=== PATIENT | male | born 1945 | race Caucasian/White ===

== ENCOUNTER 2019-09-17 08:39 | Emergency (ER) | payer BC, MEDICARE ==
[2019-09-17] MEDS ORDERED: Iopamidol 612 MG/ML 100 ML Bottle IVPUSH ONE (09:00)
[2019-09-17] MEDS ORDERED: fentaNYL 100 MCG/2 ML SDV IVPUSH ONE (09:00)
--- NOTE | 2019-09-17 09:01 | EDM.PDOC ---
ED HPI GENERAL MEDICAL PROBLEM - General Stated Complaint: PAIN PAIN LEFT SIDE Time Seen by Provider: 09/17/19 08:55 Source of Information: Reports: Patient, RN History Limitations: Reports: No Limitations - History of Present Illness INITIAL COMMENTS - FREE TEXT/NARRATIVE: 73-year-old with past medical history of hypertension and hyperlipidemia who presents to the ER with left lower abdominal pain x one day. Patient reports he woke up from sleep yesterday with left lower quadrant pain which gradually subsided throughout the day. Prior to his ER visit, he woke up with the same pain again and it is not subsiding. He has not tried anything for pain. Nothing makes it worse or better. He has never had such pain before. Patient rates pain as an 8 on a 10 and described as sharp and deep. He denies any fevers, chills shortness of breath, chest pain, palpitation, diarrhea, constipation, nausea, vomiting, no history of kidney stones ordiverticulitis. He denies any urinary symptoms or recent abdominal trauma. Onset: Sudden Onset Date: 09/16/19 Duration: Day(s): Location: Reports: Abdomen Quality: Reports: Sharp Severity: Severe Improves with: Reports: None Left Abdominal Pain Score (Numeric/FACES): 7 - Related Data Allergies Allergy/AdvReac Type Severity Reaction Status Date / Time No Known Allergies Allergy Verified 09/17/19 08:53 Home Meds: Home Meds Aspirin [Halfprin] 81 mg PO DAILY 09/17/19 [History] Brimonidine Tartrate/Timolol [Combigan Eye Drops] 5 ml OP BID 09/17/19 [History] Latanoprost/Pf [Latanoprost 0.005% Eye Drop] 7.5 ml OP DAILY 09/17/19 [History] Netarsudil Mesylate [Rhopressa] 2.5 ml OP DAILY 09/17/19 [History] amLODIPine Besylate [Norvasc] 10 mg PO DAILY 09/17/19 [History] atorvaSTATin [Lipitor] 40 mg PO DAILY 09/17/19 [History] lisinopriL [Lisinopril] 10 mg PO DAILY 09/17/19 [History] ED ROS GENERAL - Review of Systems Review Of Systems: Comprehensive ROS is negative, except as noted in HPI. ED EXAM,LOWER BACK PAIN/INJURY - Physical Exam Exam: See Below Exam Limited By: No Limitations General Appearance: Alert, Anxious, Severe Distress Respiratory/Chest: No Respiratory Distress, Lungs Clear, Normal Breath Sounds, No Accessory Muscle Use, Chest Non-Tender Cardiovascular: Normal Peripheral Pulses, Regular Rate, Rhythm, No Edema, No Gallop, No JVD, No Murmur, No Rub GI/Abdominal: Normal Bowel Sounds, Soft, Tender (LLQ apin noted with palpation) (Male) Exam: Deferred Rectal (Males) Exam: Deferred Back Exam: Normal Inspection Neurological: Alert, Normal Gait Psychiatric: Tearful Skin Exam: Warm, Dry Lymphatic: No Adenopathy Course - Vital Signs Last Recorded V/S: Last Vital Signs Temp 97.1 F 09/17/19 08:57 Pulse 66 09/17/19 08:57 Resp 18 09/17/19 08:57 BP 170/79 H 09/17/19 08:57 Pulse Ox 99 09/17/19 08:57 - Orders/Labs/Meds Labs: Laboratory Tests 09/17/19 09/17/19 09/17/19 Range/Units 08:50 09:07 09:07 WBC 10.7 H (5.0-10.0) 10^3/uL RBC 4.67 (4.6-6.2) 10^6/uL Hgb 13.8 L (14.0-18.0) g/dL Hct 41.4 (40.0-54.0) % MCV 88.7 (80-100) fL MCH 29.6 (27.0-34.0) pg MCHC 33.3 (33.0-35.0) g/dL Plt Count 186 (150-450) 10^3/uL Neut % (Auto) 82.6 H (42.2-75.2) % Lymph % (Auto) 9.6 L (20.5-50.1) % Snyder % (Auto) 5.5 (2-8) % Eos % (Auto) 2.0 (1.0-3.0) % Baso % (Auto) 0.3 (0.0-1.0) % Sodium 142 (136-145) mmol/L Potassium 4.0 (3.5-5.1) mmol/L Chloride 106 (98-107) mmol/L Carbon Dioxide 29 (21-32) mmol/L Anion Gap 11.0 (7-13) mEq/L BUN 16 (7-18) mg/dL Creatinine 1.20 (0.70-1.30) mg/dL Est Cr Clr Drug Dosing 60.18 mL/min Estimated GFR (MDRD) 59 BUN/Creatinine Ratio 13.3 (No establ ref range) Glucose 107 H (74-99) mg/dL Calcium 9.0 (8.5-10.1) mg/dL Total Bilirubin 0.8 (0.2-1.0) mg/dL AST 26 (15-37) U/L ALT 33 (16-63) U/L Alkaline Phosphatase 85 (46-116) U/L Total Protein 7.0 (6.4-8.2) g/dL Albumin 3.9 (3.4-5.0) g/dL Globulin 3.1 Albumin/Globulin Ratio 1.3 Urine Color Yellow (YELLOW) Urine Appearance Slightly cloudy (CLEAR) Urine pH 5.5 (5.0-9.0) Ur Specific Bates 1.025 (1.005-1.030) Urine Protein Negative (NEGATIVE) Urine Glucose (UA) Negative (NEGATIVE) Urine Ketones Negative (NEGATIVE) Urine Occult Blood Large H (NEGATIVE) Urine Nitrite Negative (NEGATIVE) Urine Bilirubin Negative (NEGATIVE) Urine Urobilinogen 0.2 (0.2-1.0) mg/dL Ur Leukocyte Esterase Negative (NEGATIVE) Urine RBC 30-40 H /HPF Urine WBC 0-5 (0-5/HPF) /HPF Ur Epithelial Cells Rare (NOT SEEN) /HPF Urine Bacteria Not seen (0-FEW/HPF) /HPF Meds: Medications Discontinued Medications Generic Name Dose Route Start Last Admin Trade Name Travisq PRN Reason Stop Dose Admin Fentanyl 25 mcg 09/17/19 09:00 09/17/19 09:08 Sublimaze IVPUSH 09/17/19 09:01 25 mcg ONETIME ONE Administration Iopamidol 100 ml 09/17/19 09:00 09/17/19 09:51 Isovue-300 (61%) IVPUSH 09/17/19 09:01 75 ml ONETIME ONE Administration Ketorolac Tromethamine 30 mg 09/17/19 10:28 Toradol IVPUSH 09/17/19 10:29 ONETIME ONE Ondansetron HCl 4 mg 09/17/19 09:47 09/17/19 10:03 Zofran IVPUSH 09/17/19 09:48 4 mg ONETIME ONE Administration Orphenadrine Citrate 60 mg 09/17/19 10:28 Norflex IM 09/17/19 10:29 ONETIME ONE - Radiology Interpretation Free Text/Narrative:: IMPRESSION: 1. Mild right perinephric stranding and hydronephrosis secondary to a five mm calculus located in the right ureter at the level of L3-L4. Mild left perinephric stranding and hydronephrosis secondary to a 3.5 mm calculus located in the left ureter at the level of L4-L5. 2. Remainder of findings as described above. - Re-Assessments/Exams Free Text/Narrative Re-Assessment/Exam: &# year old male whjay presents to the ER with complains of LLQ pain. He was given Fentanyl 25 mg and Zofran for pain and nausea with some relief. CT scan results as noted in the chart and labs were reviewed with the patient . Patient started having pain again and was treated with Toradol and Norflex IM. RX for Toradol, flexeril and Flomax send home with patient. He was also given a sieve to bring his stones into his urology appointment which will be schedule after he sees his PCP. Encouraged him to push fluids. More instructions included in AVS. Patient verbalized understanding. 09/17/19 10:36 Departure - Departure Time of Disposition: 10:37 Disposition: Home, Self-Care 01 Condition: Fair Clinical Impression: Kidney stone on left side, Hydronephrosis, left - Discharge Information Instructions: Low-Purine Eating Plan, Kidney Stones, [id number], Renal Colic, [id number] Additional Instructions: Take medications as prescribed Push fluids and rest Follow up with PCP in 1 -2 days for a Urology referral. Bring stones if any to the Urology appointment. Instructions on a low purine diet included in the AVS (please read) Patient verbalized understanding. Sepsis Event Note (ED) - Focused Exam Vital Signs: Vital Signs Temp Pulse Resp BP Pulse Ox 09/17/19 08:57 97.1 F 66 18 170/79 H 99
[2019-09-17] MEDS ORDERED: Ondansetron 4 MG/2 ML SDV IVPUSH ONE (09:47)
--- NOTE | 2019-09-17 10:16 | CT ---
PROCEDURE INFORMATION: Exam: CT Abdomen And Pelvis With Contrast Exam date and time: 09/17/2019 9:46 AM Age: 74 years old Clinical indication: Other: Llq pain TECHNIQUE: Imaging protocol: Computed tomography of the abdomen and pelvis with intravenous contrast. Radiation optimization: All CT scans at this facility use at least one of these dose optimization techniques: automated exposure control; mA and/or kV adjustment per patient size (includes targeted exams where dose is matched to clinical indication); or iterative reconstruction. Contrast material: ISOVUE 300; Contrast volume: 75 ml; Contrast route: INTRAVENOUS (IV); COMPARISON: No relevant prior studies available. FINDINGS: Lungs: Minimal dependent changes are present in the lung bases. Mediastinal space: Small hiatal hernia is present. Liver: Normal. No mass. Gallbladder and bile ducts: Normal. No calcified stones. No ductal dilation. Pancreas: Normal. No ductal dilation. Spleen: The spleen is mildly prominent. Adrenals: Normal. No mass. Kidneys and ureters: Mild right perinephric stranding and hydronephrosis secondary to a five mm calculus located in the right ureter at the level of L3-L4. Mild left perinephric stranding and hydronephrosis secondary to a 3.5 mm calculus located in the left ureter at the level of L4-L5. Stomach and bowel: Diverticulosis is present with no CT evidence of diverticulitis. Appendix: No evidence of appendicitis. Intraperitoneal space: Unremarkable. No free air. No significant fluid collection. Vasculature: Vascular calcifications are present. Mild ectasia of the infrarenal aorta measuring up to 2.7 cm. Lymph nodes: Unremarkable. No enlarged lymph nodes. Bladder: Unremarkable as visualized. Reproductive: Unremarkable as visualized. Bones/joints: Unremarkable. No acute fracture. Soft tissues: Unremarkable. IMPRESSION: 1. Mild right perinephric stranding and hydronephrosis secondary to a five mm calculus located in the right ureter at the level of L3-L4. Mild left perinephric stranding and hydronephrosis secondary to a 3.5 mm calculus located in the left ureter at the level of L4-L5. 2. Remainder of findings as described above.
[2019-09-17] MEDS ORDERED: Orphenadrine 60 MG/2 ML Inj IM ONE (10:28)
[2019-09-17] MEDS ORDERED: Ketorolac 30 MG/ML SDV IVPUSH ONE (10:28)
== END 2019-09-17 10:55 | disposition home or self-care (01) ==
LOC: DL.ED 08:39
DX: N13.2 Hydronephrosis with renal and ureteral calculous obstruction (principal); I10 Essential (primary) hypertension; E78.5 Hyperlipidemia, unspecified; Z79.82 Long term (current) use of aspirin; Z79.899 Other long term (current) drug therapy
CPT/HCPCS: 36415; 74177; 80053; 81001; 85025; 96372; 96374; 96375; 99284; J1885; J2360; J2405; J3010; Q9967; 99283